=== PATIENT | male | born 1985 ===

== ENCOUNTER 2023-12-17 11:32 | Emergency (ER) | payer BC ==
[2023-12-17] MEDS: Famotidine 20 MG/2 ML SDV IVPUSH ONE (12:22)
[2023-12-17] MEDS: Ondansetron 4 MG/2 ML SDV IVPUSH ONE ×2 (12:22→14:59)
[2023-12-17] MEDS: Sodium Chloride 0.9% 1,000 ML IV ONE ×2 (12:22→14:55)
[2023-12-17] MEDS: Morphine 4 MG/ML Syringe IVPUSH ONE ×2 (12:22→15:00)
[2023-12-17 12:42] LABS: BASOPHILS PERCENT AUTO 0.4 % (0.0-1.0); EOSINOPHILS ABSOLUTE AUTO 0.1 K/mm3 (0.0-0.4); EOSINOPHILS PERCENT AUTO 0.7 % (0.0-6.0); HEMATOCRIT 42.8 % (42.0-52.0); HEMOGLOBIN 14.4 gm/dl (14.0-18.0); IMMATURE GRAN ABSOLUTE AUTO 0.02 K/mm3 (0.00-0.05); IMMATURE GRAN PERCENT AUTO 0.3 % (0.0-0.4); LYMPHOCYTES PERCENT AUTO 26.8 % (24.0-44.0); MEAN CORPUSCULAR HEMOGLOBIN 28.1 pg (28.0-32.0); MEAN CORPUSCULAR HGB CONC 33.6 g/dl (32.0-36.0); MEAN CORPUSCULAR VOLUME 83.4 fl (83.0-99.0); MEAN PLATELET VOLUME 9.6 fl (9.4-12.4); MONOCYTES ABSOLUTE AUTO 0.5 K/mm3 (0.0-0.8); MONOCYTES PERCENT AUTO 7.1 % (0.0-8.0); NEUTROPHILS ABSOLUTE AUTO 4.8 K/mm3 (1.8-7.7); NEUTROPHILS PERCENT AUTO 64.7 % (41.0-71.0); PLATELET COUNT,PLT 219 K/mm3 (150-400); RED BLOOD CELL COUNT 5.13 M/mm3 (4.52-5.90); WHITE BLOOD CELL COUNT,WBC 7.35 K/mm3 (3.9-11.3)
[2023-12-17 12:44] LABS: A/G RATIO 1.1 (1-2); ALBUMIN 3.8 g/dl (3.4-5.0); ANION GAP 15.2 (5-15); BILIRUBIN TOTAL 0.7 mg/dL (0.2-1.0); BUN/CREATININE RATIO 11.3 (14-18); CALCIUM 8.4 mg/dL (8.5-10.1); CREATININE 1.5 mg/dL (0.7-1.3); EST CRCL DRUG DOSING (CG) 68.27 mL/min; MAGNESIUM 2.1 mg/dL (1.8-2.4); PHOSPHORUS 3.2 mg/dL (2.6-4.7); PROTEIN TOTAL,TP 7.3 g/dl (6.4-8.2)
[2023-12-17 12:48] LABS: POTASSIUM,K 4.2 mEq/L (3.5-5.1)
[2023-12-17] MEDS: Lidocaine 2% Viscous Solution 15 ML UD PO ONE (14:55)
[2023-12-17] MEDS: Cyclobenzaprine 10 MG Tab PO ONE (14:56)
[2023-12-17] MEDS: methylPREDNISolone Sodium Succinate 125 MG/2 ML SDV IVPUSH ONE (14:58)
[2023-12-17] MEDS: Acetaminophen/oxyCODONE 325-5 MG Tab PO ONE (14:58)
[2023-12-17 15:25] LABS: APPEARANCE,URINE CLEAR (Clear); BILIRUBIN,URINE NEGATIVE (Negative); COLOR,URINE YELLOW (Yellow); GLUCOSE,URINE NEGATIVE (Negative); KETONES,URINE NEGATIVE (Negative); LEUKOCYTE ESTERASE,URINE NEGATIVE (Negative); NITRITE,URINE NEGATIVE (Negative); OCCULT BLOOD,URINE NEGATIVE (Negative); PROTEIN,URINE TRACE (Negative); UROBILINOGEN,URINE 0.2 (0.2-1.0)
[2023-12-17 15:42] LABS: BACTERIA,URINE OCCASIONAL /hpf (FEW); MUCUS,URINE FEW /hpf (FEW); RBC,URINE 0-5 /hpf (0-5); SQUAMOUS EPITHELIAL CELLS,UR NOT SEEN /hpf (0-5); WBC,URINE 0-5 /hpf (0-5)
== END 2023-12-17 17:00 | disposition home or self-care (01) ==
LOC: JD.ED 11:32
DX: K52.9 Noninfective gastroenteritis and colitis, unspecified (principal); M54.14 Radiculopathy, thoracic region; Z86.16 Personal history of COVID-19; Z79.899 Other long term (current) drug therapy
CPT/HCPCS: 36415; 71046; 80053; 81001; 83605; 83690; 83735; 84100; 84484; 85025; 85379; 85730; 93005; 96361; 96374; 96375; 96376; 99284; A9270; J2270; J2405; J2930; J3490; J7030; 93010